=== PATIENT | female | born 1990 | race Caucasian/White ===

== ENCOUNTER 2022-09-05 23:39 | Inpatient (IN) ==
[2022-09-06] MEDS ORDERED: LACTATED RINGERS 500 ML IV PRN (00:56)
[2022-09-06] MEDS ORDERED: CARBOPROST TROMETHAMINE 250 MCG/ML AMP IM PRN (00:56)
[2022-09-06] MEDS ORDERED: miSOPROStoL 200 MCG TABLET RECTAL PRN (00:56)
[2022-09-06] MEDS ORDERED: ONDANSETRON 4 MG/2 ML VIAL IV PRN (00:56)
[2022-09-06] MEDS ORDERED: LACTATED RINGERS 250 ML IV ONE (00:56)
[2022-09-06] MEDS ORDERED: METHYLERGONOVINE 0.2 MG/1 ML AMP IM PRN (00:56)
[2022-09-06] MEDS ORDERED: TRANEXAMIC ACID 1,000 MG in SODIUM CHLORIDE 0.9% 100 ML IV PRN (00:56)
[2022-09-06] MEDS ORDERED: OXYTOCIN/LR 20 UNIT/1,000 ML BAG IV ONE (00:56)
[2022-09-06] MEDS: LACTATED RINGERS 1,000 ML IV SCH ×3 (01:14→14:13)
[2022-09-06 01:20] LABS: Basophils % 0.2 % (0.0-0.8); Eosinophils # 0.1 10*3/uL (0.0-0.87); Eosinophils % 1.1 % (0.00-10.9); Hemoglobin 11.4 GM/DL (12.0-16.0); Immature Granulocytes % 0.5 %; Immature Granulocytes Absolute 0.06 #; Lymphocytes # 1.6 10*3/uL (1.4-4.0); Lymphocytes % 12.5 % (21.3-54.2); Mean Corpuscular HGB Conc 32.6 GM/DL (32-36); Mean Corpuscular Volume 83.1 FL (87-102); Mean Platelet Volume 8.6 FL (9.6-12.0); Monocytes # 0.7 10*3/uL (0.11-0.8); Monocytes % 5.4 % (1.7-12.7); Neutrophils % 80.3 % (38.7-73.9); Platelet Count 346 T/CUMM (130-400); Red Blood Count 4.21 MC/CUMM (3.8-5.5); Red Cell Distribution Width 15.7 % (9.3-17.3); White Blood Count 12.61 T/CUMM (4-12)
[2022-09-06 01:40] LABS: Alanine Aminotransferase 20 U/L (13-56); Albumin 2.6 G/DL (3.4-5.0); Alkaline Phosphatase 191 U/L (45-117); Aspartate Amino Transferase 15 U/L (0-37); Bilirubin,Total < 0.39 MG/DL (0.20-1.00); Blood Urea Nitrogen 11 MG/DL (7-18); Calcium 9.2 MG/DL (8.5-10.1); Carbon Dioxide 19 MMOL/L (21-32); Chloride 106 MMOL/L (98-107); Glucose 113 MG/DL (74-106); Potassium 3.7 MMOL/L (3.5-5.1); Sodium 136 MMOL/L (136-145); Total Protein 6.6 G/DL (6.4-8.2)
[2022-09-06] MEDS ORDERED: NALOXONE 0.4 MG/ML VIAL IV PRN (10:45)
[2022-09-06] MEDS ORDERED: ONDANSETRON 4 MG/2 ML VIAL IV ONE (10:45)
[2022-09-06] MEDS ORDERED: hydrOXYzine HCL 25 MG/1 ML VIAL IM PRN (10:45)
[2022-09-06] MEDS ORDERED: CITRIC ACID/SODIUM CITRATE 30 ML UDCUP PO ONE (10:45)
[2022-09-06] MEDS ORDERED: PROMETHAZINE 25 MG/1 ML VIAL IM ONE (10:45)
[2022-09-06] MEDS ORDERED: ePHEDrine 50 MG/ML VIAL IV PRN (10:45)
[2022-09-06] MEDS ORDERED: diphenhydrAMINE 50 MG/1 ML VIAL IV PRN ×2 (10:45)
[2022-09-06] MEDS ORDERED: FAMOTIDINE 20 MG/2 ML VIAL IV ONE (10:45)
[2022-09-06] MEDS: fentaNYL 2 MCG/ROPIV 0.2% EPID 100 ML EPIDURAL SCH ×2 (11:23→19:07)
[2022-09-06 12:52] LABS: Glucose,Urine (UA) Negative (Negative); Ketones,Urine Trace mg/dL (Negative); Mucus,Urine Occasional /LPF (Occasional); Nitrite,Urine Negative (Negative); Protein,Urine Negative (Negative); RBC,Urine 1 /HPF (0-4); Squamous Epithelial Cell,Urine Occasional /HPF (0-10); Urine Appearance Clear (Clear); Urine Color Yellow (Yellow); Urine Specific Gravity 1.015 (1.001-1.035)
[2022-09-06 12:53] LABS: Bilirubin,Urine Negative (Negative); Blood, Urine Negative (Negative); Urine Urobilinogen 0.2 eU/dL (<2.0)
[2022-09-06] MEDS ORDERED: AMPICILLIN INJ 2,000 MG in SODIUM CHLORIDE 0.9% 100 ML IV SCH (17:00)
[2022-09-06] MEDS: CLINDAMYCIN INJ 900 MG/50 ML PREMIX IV SCH (17:14)
[2022-09-07] MEDS: LACTATED RINGERS 1,000 ML IV SCH (00:40)
[2022-09-07] MEDS: CLINDAMYCIN INJ 900 MG/50 ML PREMIX IV SCH ×3 (01:28→21:46)
[2022-09-07] MEDS ORDERED: ACETAMINOPHEN 500 MG TABLET PO ONE (02:03)
[2022-09-07] MEDS ORDERED: TRANEXAMIC ACID 1,000 MG in SODIUM CHLORIDE 0.9% 100 ML IV PRN (06:17)
[2022-09-07] MEDS ORDERED: CITRIC ACID/SODIUM CITRATE 30 ML UDCUP PO ONE (06:17)
[2022-09-07] MEDS ORDERED: OXYTOCIN/LR 20 UNIT/1,000 ML BAG IV ONE ×3 (06:17→07:30)
[2022-09-07] MEDS ORDERED: ceFAZolin 2,000 MG/50 ML DUPLEX IV ONE (06:17)
[2022-09-07] MEDS ORDERED: METHYLERGONOVINE 0.2 MG/1 ML AMP IM PRN (06:17)
[2022-09-07] MEDS ORDERED: FAMOTIDINE 20 MG/2 ML VIAL IV ONE (06:17)
[2022-09-07] MEDS ORDERED: CARBOPROST TROMETHAMINE 250 MCG/ML AMP IM PRN (06:17)
[2022-09-07] MEDS ORDERED: miSOPROStoL 200 MCG TABLET RECTAL PRN (06:17)
[2022-09-07] MEDS ORDERED: TRANEXAMIC ACID 1,000 MG/10 ML VIAL ONE (06:31)
[2022-09-07] MEDS ORDERED: SODIUM CHLORIDE 0.9% 0 ML IV ONE (06:31)
[2022-09-07] MEDS ORDERED: METHYLERGONOVINE 0.2 MG/1 ML AMP ONE (06:31)
[2022-09-07] MEDS ORDERED: CARBOPROST TROMETHAMINE 250 MCG/ML AMP IM ONE (06:31)
[2022-09-07] MEDS ORDERED: miSOPROStoL 200 MCG TABLET ONE (06:31)
[2022-09-07] MEDS ORDERED: TERBUTALINE 1 MG/1 ML VIAL ONE (06:32)
[2022-09-07] MEDS ORDERED: TERBUTALINE 1 MG/1 ML VIAL SUBCUT ONE (06:33)
[2022-09-07] MEDS ORDERED: buprenorphine HCL 0.3 MG/ML VIAL ONE (06:57)
[2022-09-07] MEDS ORDERED: MIDAZOLAM 2 MG/2 ML VIAL ONE (07:06)
[2022-09-07] MEDS: fentaNYL 2 MCG/ROPIV 0.2% EPID 100 ML EPIDURAL SCH (07:10)
[2022-09-07 07:21] LABS: Cord Arterial Blood HCO3 17.6 MMOL/L
[2022-09-07] MEDS ORDERED: KETOROLAC 30 MG/1 ML VIAL ONE (07:21)
[2022-09-07] MEDS ORDERED: RHO(D) IMMUNE GLOBULIN 300 MCG SYRINGE IM ONE (07:30)
[2022-09-07] MEDS ORDERED: SIMETHICONE CHEW 80 MG TABLET PO PRN (07:30)
[2022-09-07] MEDS ORDERED: ACETAMINOPHEN 325 MG TABLET PO PRN (07:30)
[2022-09-07] MEDS ORDERED: LACTATED RINGERS 1,000 ML IV SCH (07:30)
[2022-09-07] MEDS ORDERED: ONDANSETRON 4 MG/2 ML VIAL IV PRN (07:30)
[2022-09-07 07:31] LABS: Cord Venous Blood HCO3 17.1 MMOL/L; Cord Venous Blood PO2 38.9
[2022-09-07 11:51] LABS: Basophils % 0.2 % (0.0-0.8); Eosinophils % 0.1 % (0.00-10.9); Hematocrit 30.2 VOL% (35.7-47.0); Hemoglobin 10.1 GM/DL (12.0-16.0); Immature Granulocytes % 0.4 %; Immature Granulocytes Absolute 0.08 #; Lymphocytes # 1.3 10*3/uL (1.4-4.0); Lymphocytes % 6.6 % (21.3-54.2); Mean Corpuscular HGB Conc 33.4 GM/DL (32-36); Mean Corpuscular Volume 83.2 FL (87-102); Mean Platelet Volume 8.6 FL (9.6-12.0); Monocytes % 5.1 % (1.7-12.7); Neutrophils % 87.6 % (38.7-73.9); Platelet Count 287 T/CUMM (130-400); Red Blood Count 3.63 MC/CUMM (3.8-5.5); Red Cell Distribution Width 15.9 % (9.3-17.3); White Blood Count 19.28 T/CUMM (4-12)
[2022-09-07] MEDS: ACETAMINOPHEN 500 MG TABLET PO SCH ×2 (12:10→18:05)
[2022-09-07] MEDS: MULTIVITAMIN (PRENATAL) TABLET PO SCH (21:46)
[2022-09-07] MEDS: IBUPROFEN 800 MG TABLET PO PRN (21:46)
[2022-09-07] MEDS: DOCUSATE SODIUM 100 MG CAPSULE PO SCH (21:46)
[2022-09-08] MEDS: ACETAMINOPHEN 500 MG TABLET PO SCH (03:14)
[2022-09-08 05:23] LABS: Basophils % 0.3 % (0.0-0.8); Eosinophils # 0.2 10*3/uL (0.0-0.87); Eosinophils % 1.7 % (0.00-10.9); Hematocrit 28.6 VOL% (35.7-47.0); Hemoglobin 9.3 GM/DL (12.0-16.0); Immature Granulocytes % 0.6 %; Immature Granulocytes Absolute 0.08 #; Lymphocytes # 1.8 10*3/uL (1.4-4.0); Mean Corpuscular HGB Conc 32.5 GM/DL (32-36); Mean Corpuscular Volume 85.6 FL (87-102); Mean Platelet Volume 9.4 FL (9.6-12.0); Monocytes # 0.7 10*3/uL (0.11-0.8); Monocytes % 5.2 % (1.7-12.7); Neutrophils % 79.2 % (38.7-73.9); Platelet Count 305 T/CUMM (130-400); Red Blood Count 3.34 MC/CUMM (3.8-5.5); White Blood Count 13.62 T/CUMM (4-12)
[2022-09-08] MEDS ORDERED: LIDOCAINE MPF 2% /EPI 20 ML VIAL ONE (05:58)
[2022-09-08] MEDS: MULTIVITAMIN (PRENATAL) TABLET PO SCH (10:00)
[2022-09-08] MEDS: MAGNESIUM HYDROXIDE SUSP 30 ML UDCUP PO PRN ×2 (10:00→19:48)
[2022-09-08] MEDS: DOCUSATE SODIUM 100 MG CAPSULE PO SCH ×2 (10:00→22:27)
[2022-09-08] MEDS: IBUPROFEN 800 MG TABLET PO PRN (10:15)
[2022-09-08] MEDS: IBUPROFEN 600 MG TABLET PO PRN (23:03)
[2022-09-09] MEDS: IBUPROFEN 600 MG TABLET PO PRN ×3 (06:07→21:45)
[2022-09-09] MEDS: FERROUS SULFATE 325 MG TABLET PO SCH ×3 (07:27→21:45)
[2022-09-09] MEDS: DOCUSATE SODIUM 100 MG CAPSULE PO SCH ×2 (08:23→21:45)
[2022-09-09] MEDS: MAGNESIUM HYDROXIDE SUSP 30 ML UDCUP PO PRN (08:24)
[2022-09-09] MEDS: MULTIVITAMIN (PRENATAL) TABLET PO SCH (09:10)
[2022-09-10] MEDS: IBUPROFEN 600 MG TABLET PO PRN (03:28)
[2022-09-10 07:22] VITALS: BP 110/59
[2022-09-10] MEDS: FERROUS SULFATE 325 MG TABLET PO SCH (09:28)
[2022-09-10] MEDS: DOCUSATE SODIUM 100 MG CAPSULE PO SCH (09:28)
[2022-09-10] MEDS: MULTIVITAMIN (PRENATAL) TABLET PO SCH (09:28)
[2022-09-10] MEDS: MAGNESIUM HYDROXIDE SUSP 30 ML UDCUP PO PRN (09:28)
[2022-09-10] MEDS ORDERED: MEASLES/MUMPS/RUBELLA VACCINE 0.5 ML VIAL SUBCUT ONE (11:13)
[2022-09-10] MEDS ORDERED: DIPH/TET/ACEL PERT BOOSTER VACCINE 0.5 ML VIAL IM ONE (11:13)
== END 2022-09-10 13:05 | disposition home or self-care (01) | DRG 788 ==
LOC: N.LDOUT 23:39 → N.LD 23:40 → N.OB 09-08 07:37
PROVIDERS: ADMIT Obstetrics & Gynecology; ATTEND Obstetrics & Gynecology
PROC: LDCSECT (ICD-10-PCS; 2022-09-07 06:30)